=== PATIENT | male | born 1935 | race Caucasian/White ===

== ENCOUNTER → 2017-03-25 | Outpatient (CLI) | payer MEDICARE, SELFPAY ==
[~2017-03-25] MED LIST: LISINOPRIL20 MG PO; MIRALAX17 GM PO; NORVASC 5 MG TAB5 MG PO; OMEPRAZOLE20 MG PO; PHENERGAN 25 MG25 M1 PO; PROTONIX40 MG PO; SIMVASTATIN10 MG PO
== END ==
LOC: KOH-I 08:00
DX: R10.0 Acute abdomen (principal); K80.20 Calculus of gallbladder without cholecystitis without obstruction
CPT/HCPCS: 76705

== ENCOUNTER 2017-04-21 09:07 | Inpatient (IN) | payer MEDICARE, OTHER ==
[~2017-04-21] VITALS: Ht 189.2 cm; Wt 77.3 kg
[2017-04-21 09:57] LABS: HEMOGLOBIN 12.2 gm/dl (14.0-17.5); RED BLOOD COUNT 3.84 M/UL (4.20-5.50); WHITE BLOOD COUNT 10.7 K/UL (4.5-11.0)
[2017-04-21 10:49] LABS: BUN/CREATININE RATIO 34 (0-10)
[2017-04-21] MEDS ORDERED: LISINOPRIL20 MG PO (17:25)
[2017-04-21] MEDS ORDERED: NORVASC 5 MG TAB5 MG PO (17:25)
[2017-04-21] MEDS ORDERED: OMEPRAZOLE20 MG PO (17:26)
[2017-04-21] MEDS ORDERED: SIMVASTATIN10 MG PO (17:27)
[2017-04-21] MEDS ORDERED: MIRALAX17 GM PO (17:28)
[2017-04-21] MEDS ORDERED: PHENERGAN 25 MG25 M1 PO (17:28)
[2017-04-21 19:55] LABS: HEMOGLOBIN 10.3 gm/dl (14.0-17.5)
[2017-04-22 04:08] LABS: HEMOGLOBIN 9.4 gm/dl (14.0-17.5)
[2017-04-22 04:09] LABS: RED BLOOD COUNT 2.98 M/UL (4.20-5.50); WHITE BLOOD COUNT 6.4 K/UL (4.5-11.0)
[2017-04-22 04:23] LABS: BUN/CREATININE RATIO 35 (0-10)
[2017-04-22 11:17] LABS: HEMOGLOBIN 9.6 gm/dl (14.0-17.5)
[2017-04-23 05:33] LABS: HEMOGLOBIN 8.5 gm/dl (14.0-17.5)
[2017-04-23 05:38] LABS: RED BLOOD COUNT 2.65 M/UL (4.20-5.50); WHITE BLOOD COUNT 8.2 K/UL (4.5-11.0)
[2017-04-23 05:56] LABS: BUN/CREATININE RATIO 24 (0-10)
[2017-04-24 04:24] LABS: HEMOGLOBIN 8.1 gm/dl (14.0-17.5); RED BLOOD COUNT 2.59 M/UL (4.20-5.50); WHITE BLOOD COUNT 6.4 K/UL (4.5-11.0)
[2017-04-24 04:45] LABS: BUN/CREATININE RATIO 13 (0-10)
[2017-04-25 05:08] LABS: HEMOGLOBIN 7.4 gm/dl (14.0-17.5); RED BLOOD COUNT 2.34 M/UL (4.20-5.50); WHITE BLOOD COUNT 5.3 K/UL (4.5-11.0)
[2017-04-26 04:48] LABS: HEMOGLOBIN 8.4 gm/dl (14.0-17.5)
[2017-04-26 04:49] LABS: RED BLOOD COUNT 2.7 M/UL (4.20-5.50)
[2017-04-26 05:22] LABS: BUN/CREATININE RATIO 9 (0-10)
[2017-04-26 12:51] LABS: HEMOGLOBIN 8.8 gm/dl (14.0-17.5)
[2017-04-27 04:04] LABS: HEMOGLOBIN 8.5 gm/dl (14.0-17.5); RED BLOOD COUNT 2.73 M/UL (4.20-5.50); WHITE BLOOD COUNT 5.4 K/UL (4.5-11.0)
[2017-04-27] MEDS ORDERED: PROTONIX40 MG PO (19:15)
== END 2017-04-27 19:37 | disposition home or self-care (01) | DRG 378 ==
LOC: ER1 09:07 → MED SURG 4 12:12 → ZEROF 12:12 → MED SURG 4 16:53
PROVIDERS: Family Medicine; Internal Medicine; Internal Medicine Gastroenterology; Internal Medicine Infectious Disease; ADMIT Internal Medicine
PROC: 0DJ08ZZ Inspection of Upper Intestinal Tract, Via Natural or Artificial Opening Endoscopic (ICD-10-PCS; principal; 2017-04-23 15:15)
PROC: 0DJD8ZZ Inspection of Lower Intestinal Tract, Via Natural or Artificial Opening Endoscopic (ICD-10-PCS; 2017-04-23 15:15)
PROC: 30233N1 Transfusion of Nonautologous Red Blood Cells into Peripheral Vein, Percutaneous Approach (ICD-10-PCS; 2017-04-25)
DX: K57.31 Diverticulosis of large intestine without perforation or abscess with bleeding (principal); D62 Acute posthemorrhagic anemia; K22.10 Ulcer of esophagus without bleeding; I48.91 Unspecified atrial fibrillation; K44.9 Diaphragmatic hernia without obstruction or gangrene; K64.8 Other hemorrhoids; K62.4 Stenosis of anus and rectum; K31.84 Gastroparesis; N40.0 Benign prostatic hyperplasia without lower urinary tract symptoms; K21.9 Gastro-esophageal reflux disease without esophagitis; E78.4 Other hyperlipidemia; E78.5 Hyperlipidemia, unspecified; I10 Essential (primary) hypertension; Z98.890 Other specified postprocedural states; Z79.1 Long term (current) use of non-steroidal anti-inflammatories (NSAID); Z79.899 Other long term (current) drug therapy; Z86.73 Personal history of transient ischemic attack (TIA), and cerebral infarction without residual deficits; Z87.891 Personal history of nicotine dependence
CPT/HCPCS: 36415; 36430; 80048; 80053; 82272; 83735; 85014; 85018; 85025; 85027; 85610; 85730; 86850; 86900; 86901; 86920; 93005; 99283; J2550; J7030; J7040; J7050; P9016

== ENCOUNTER 2021-02-12 10:39 | Inpatient (IN) | payer MEDICARE ==
[~2021-02-12] VITALS: Ht 188 cm; Wt 65.8 kg
[~2021-02-12 10:39] MED LIST changes: +AMLODIPINE BESY10 MG PO; +AMLODIPINE BESYL5 MG PO; +ASPIRIN CHEWABL81 MG PO; +CATAPRES 0.1MG0.1 MG PO; +CIPRO500 MG PO; +CLARITIN10 MG PO; +ECOTRIN81 MG PO; +ELIQUIS 5 MG TAB5 MG PO; +ELIQUIS5 MG PO; +ENSURE ACTIVE296 ML PO; +FERROUS SULFAT325 M2 PO; +FLEXERIL 10 MG10 MG PO; +HYDROCHLOROTHIA25 MG PO; +HYDROCODON-ACE1 EAC2 PO; +LEVAQUIN500 MG PO; +LOPRESSOR 25 MG25 MG PO; +LOPRESSOR 50 MG50 MG PO; +LOPRESSOR50 MG PO; +MUCINEX DM ER1 EACH PO; -NORVASC 5 MG TAB5 MG PO; +NORVASC10 MG PO; +POLYETHYLENE GL17 GM PO; +PROSCAR 5 MG TAB5 MG PO; +TYLENOL 325MG325 MG PO; +VITAMIN C 500500 MG PO; +ZESTRIL20 MG PO
[2021-02-12 11:44] LABS: HEMOGLOBIN 9.6 gm/dl (14.0-17.5); RED BLOOD COUNT 4.44 M/UL (4.20-5.50); WHITE BLOOD COUNT 9.4 K/UL (4.5-11.0)
[2021-02-12 12:01] LABS: BUN/CREATININE RATIO 23 (0-10)
[2021-02-12] MEDS ORDERED: KLOR-CON M1010 MEQ PO (16:32)
[2021-02-12] MEDS ORDERED: LASIX20 MG PO (16:32)
[2021-02-12] MEDS ORDERED: MIRALAX17 GM PO (16:33)
[2021-02-12] MEDS ORDERED: ASPIRIN EC81 MG PO (16:34)
[2021-02-12] MEDS ORDERED: LOPRESSOR 50 MG50 MG PO (17:54)
[2021-02-13 03:41] LABS: HEMOGLOBIN 9.9 gm/dl (14.0-17.5); RED BLOOD COUNT 4.54 M/UL (4.20-5.50); WHITE BLOOD COUNT 11.6 K/UL (4.5-11.0)
[2021-02-13 04:06] LABS: BUN/CREATININE RATIO 24 (0-10)
[2021-02-13] MEDS ORDERED: HYDROCODON-ACE1 EAC4 PO (10:31)
== END 2021-02-13 13:00 | disposition home or self-care (01) | DRG 186 ==
LOC: ER1 10:39 → CDU 16:14 → PROG CARE 20:52
PROVIDERS: Student in an Organized Health Care Education/Training Program; ADMIT Internal Medicine Infectious Disease
PROC: 0W9930Z Drainage of Right Pleural Cavity with Drainage Device, Percutaneous Approach (ICD-10-PCS; principal; 2021-02-12)
DX: J90 Pleural effusion, not elsewhere classified (principal); J96.01 Acute respiratory failure with hypoxia; J93.9 Pneumothorax, unspecified; E87.6 Hypokalemia; I48.91 Unspecified atrial fibrillation; I49.5 Sick sinus syndrome; I10 Essential (primary) hypertension; E78.5 Hyperlipidemia, unspecified; D64.9 Anemia, unspecified; K21.9 Gastro-esophageal reflux disease without esophagitis; N40.0 Benign prostatic hyperplasia without lower urinary tract symptoms; Z96.643 Presence of artificial hip joint, bilateral; I71.4 Abdominal aortic aneurysm, without rupture; Z66 Do not resuscitate; Z86.73 Personal history of transient ischemic attack (TIA), and cerebral infarction without residual deficits; Z86.711 Personal history of pulmonary embolism; Z95.0 Presence of cardiac pacemaker; Z90.49 Acquired absence of other specified parts of digestive tract; Z82.3 Family history of stroke; Z98.49 Cataract extraction status, unspecified eye
CPT/HCPCS: ECHO; 36415; 36600; 71045; 80053; 82550; 82553; 82803; 83735; 83874; 83880; 84484; 85025; 85027; 85610; 85730; 87070; 87205; 93005; 93306; 99285; P9047; Q9967

== ENCOUNTER → 2021-02-15 | Outpatient (CLI) | payer MEDICARE ==
[~2021-02-15] MED LIST changes: +ASPIRIN 325MG325 MG PO; +ASPIRIN EC81 MG PO; +DIGOXIN125 MCG PO; +HYDROCODON-ACE1 EAC4 PO; +KLOR-CON M1010 MEQ PO; +LANOXIN125 MCG PO; +LASIX20 MG PO; +MEGACE 400400 MG/10 PO
== END ==
LOC: EXRD 10:04
DX: R06.02 Shortness of breath (principal); J94.8 Other specified pleural conditions
CPT/HCPCS: 71046

== ENCOUNTER 2021-02-24 12:24 | Inpatient (IN) | payer MEDICARE ==
[~2021-02-24] VITALS: Ht 188 cm; Wt 77.1 kg
[~2021-02-24 12:24] MED LIST changes: -ASPIRIN 325MG325 MG PO; -DIGOXIN125 MCG PO; -LANOXIN125 MCG PO; -MEGACE 400400 MG/10 PO
[2021-02-24 12:51] LABS: HEMOGLOBIN 9.4 gm/dl (14.0-17.5); RED BLOOD COUNT 4.24 M/UL (4.20-5.50); WHITE BLOOD COUNT 13.9 K/UL (4.5-11.0)
[2021-02-24 13:15] LABS: BUN/CREATININE RATIO 24 (0-10)
[2021-02-25 05:42] LABS: HEMOGLOBIN 9.7 gm/dl (14.0-17.5); RED BLOOD COUNT 4.4 M/UL (4.20-5.50); WHITE BLOOD COUNT 11.4 K/UL (4.5-11.0)
[2021-02-25 05:57] LABS: BUN/CREATININE RATIO 26 (0-10)
--- NOTE | 2021-02-25 19:08 | NUR ---
PTS HEART RATE WENT UP TO 140 BPM. I WENT TO CHECK IN ON THE PATIENT AND FOUND HIM UP AND IN THE BATHROOM. PATIENT WAS SHORT OF BREATH AND HAD DISCONNECTED HIS CHEST TUBE FROM THE SUCTION CONTAINER. I CLAMPED THE TUBE COMING FROM THE CHEST TO PREVENT THE LUNG FROM COLLAPSING. WE THEN WALKED THE PATIENT BACK TO THE BED WHERE WE CLEANED AND ATTACHED A NEW DRAINAGE SYSTEM. THE PATIENTS O2 STAT WAS AT 94% AND HAD SOME LABORED BREATHING. ONCE WE CONNECTED HIM BACK TO THE SUCTIONS I CONFIRMED THE PATIENT HAD DRAINAGE BEFORE LEAVING. I THEN CALLED THE AND GOT HIS VOICE MAIL. I LEFT A VOICE MAIL TELLING HIM TO CALL BACK. THEN I CALLED DR. DIAZ AND SHE ORDERED A CHEST XRAY TO CONFIRM PLACEMENT OF THE CHEST TUBE. THE BED ALARM WAS TURNED ON AND THE PATIENT HAS BEEN IN THE BED.
[2021-02-26 03:56] LABS: HEMOGLOBIN 9.6 gm/dl (14.0-17.5); RED BLOOD COUNT 4.3 M/UL (4.20-5.50)
[2021-02-26 04:21] LABS: BUN/CREATININE RATIO 35 (0-10)
[2021-02-27 02:47] LABS: HEMOGLOBIN 9.3 gm/dl (14.0-17.5); RED BLOOD COUNT 4.28 M/UL (4.20-5.50); WHITE BLOOD COUNT 13.5 K/UL (4.5-11.0)
[2021-02-27 03:06] LABS: BUN/CREATININE RATIO 41 (0-10)
[2021-02-28 02:58] LABS: HEMOGLOBIN 9.1 gm/dl (14.0-17.5); RED BLOOD COUNT 4.11 M/UL (4.20-5.50); WHITE BLOOD COUNT 12.2 K/UL (4.5-11.0)
[2021-02-28 03:19] LABS: BUN/CREATININE RATIO 52 (0-10)
[2021-03-01 03:42] LABS: BUN/CREATININE RATIO 52 (0-10)
[2021-03-02 03:05] LABS: BUN/CREATININE RATIO 60 (0-10)
[2021-03-02 11:32] LABS: HEMOGLOBIN 8.5 gm/dl (14.0-17.5); RED BLOOD COUNT 3.81 M/UL (4.20-5.50); WHITE BLOOD COUNT 10.6 K/UL (4.5-11.0)
[2021-03-03 02:52] LABS: BUN/CREATININE RATIO 51 (0-10)
[2021-03-04 03:26] LABS: HEMOGLOBIN 9.1 gm/dl (14.0-17.5); RED BLOOD COUNT 4.1 M/UL (4.20-5.50)
[2021-03-04 03:50] LABS: BUN/CREATININE RATIO 42 (0-10)
[2021-03-05 03:38] LABS: RED BLOOD COUNT 4.02 M/UL (4.20-5.50)
[2021-03-05 03:48] LABS: BUN/CREATININE RATIO 44 (0-10)
[2021-03-07 02:40] LABS: RED BLOOD COUNT 4.01 M/UL (4.20-5.50); WHITE BLOOD COUNT 10.8 K/UL (4.5-11.0)
[2021-03-07 03:00] LABS: BUN/CREATININE RATIO 40 (0-10)
[2021-03-08 03:01] LABS: HEMOGLOBIN 9.4 gm/dl (14.0-17.5); RED BLOOD COUNT 4.25 M/UL (4.20-5.50); WHITE BLOOD COUNT 10.6 K/UL (4.5-11.0)
[2021-03-08 03:15] LABS: BUN/CREATININE RATIO 48 (0-10)
[2021-03-08 16:53] LABS: BUN/CREATININE RATIO 46 (0-10)
[2021-03-09 07:12] LABS: RED BLOOD COUNT 4.45 M/UL (4.20-5.50); WHITE BLOOD COUNT 10.3 K/UL (4.5-11.0)
[2021-03-09 07:45] LABS: BUN/CREATININE RATIO 43 (0-10)
[2021-03-09] MEDS ORDERED: DIGOXIN125 MCG PO (11:26)
[2021-03-09] MEDS ORDERED: ASPIRIN 325MG325 MG PO (11:26)
[2021-03-09] MEDS ORDERED: MEGACE 400400 MG/10 PO (11:26)
[2021-03-09] MEDS ORDERED: LOPRESSOR 50 MG50 MG PO (11:26)
--- NOTE | 2021-03-09 11:57 | NUR ---
1000 ML DRAINED FROM PLEUR X CATH BY [employer]
[2021-03-09] MEDS ORDERED: ASPIRIN CHEWABL81 MG PO (12:29)
--- NOTE | 2021-03-09 12:41 | NUR ---
PT O2 SATURATION WAS 99-100% WHILE UP USING BED SIDE COMMODE AND AMBULATING FROM BED TO BED SIDE COMMODE.
--- NOTE | 2021-03-09 14:28 | NUR ---
PT'S DAUGHTER GARFIELD VERBALIZES UNDERSTANDING OF HOW TO DRAIN RIGHT LUNG VIA PLUER X CATH. DEMONSTRATED AND LET DAUGHTER WATCH VIDEO ON PROCEDURE.
--- NOTE | 2021-03-09 15:33 | NUR ---
ATTEMPTED TO CALL REPORT TO [facility] AND THEY STATE THE NURSE TAKING THIS PT IS BUSY AND WILL CALL BACK AT A LATER TIME
== END 2021-03-09 14:57 | disposition home health service (06) | DRG 199 ==
LOC: ER1 12:24 → PROG CARE 13:49 → CDU 13:49 → PROG CARE 02-25 11:21
PROVIDERS: Family Medicine; Internal Medicine; Physician Assistant; Physician Assistant Medical; ADMIT Internal Medicine
PROC: XW13325 Transfusion of Convalescent Plasma (Nonautologous) into Peripheral Vein, Percutaneous Approach, New Technology Group 5 (ICD-10-PCS; principal; 2021-02-24)
PROC: 8E0ZXY6 Isolation (ICD-10-PCS; 2021-02-24)
PROC: XW033E5 Introduction of Remdesivir Anti-infective into Peripheral Vein, Percutaneous Approach, New Technology Group 5 (ICD-10-PCS; 2021-02-24)
PROC: 0W9930Z Drainage of Right Pleural Cavity with Drainage Device, Percutaneous Approach (ICD-10-PCS; 2021-02-24)
PROC: 0WP9X0Z Removal of Drainage Device from Right Pleural Cavity, External Approach (ICD-10-PCS; 2021-03-08)
DX: J93.0 Spontaneous tension pneumothorax (principal); U07.1 COVID-19; J96.01 Acute respiratory failure with hypoxia; I50.23 Acute on chronic systolic (congestive) heart failure; J94.8 Other specified pleural conditions; J90 Pleural effusion, not elsewhere classified; I42.9 Cardiomyopathy, unspecified; I48.20 Chronic atrial fibrillation, unspecified; E87.2 Acidosis; E46 Unspecified protein-calorie malnutrition; N17.9 Acute kidney failure, unspecified; E44.1 Mild protein-calorie malnutrition; I49.5 Sick sinus syndrome; E78.5 Hyperlipidemia, unspecified; I11.0 Hypertensive heart disease with heart failure; N40.0 Benign prostatic hyperplasia without lower urinary tract symptoms; Z96.643 Presence of artificial hip joint, bilateral; D53.9 Nutritional anemia, unspecified; K21.9 Gastro-esophageal reflux disease without esophagitis; R00.0 Tachycardia, unspecified; K31.84 Gastroparesis; I95.2 Hypotension due to drugs; I48.0 Paroxysmal atrial fibrillation; Z51.5 Encounter for palliative care; Z86.711 Personal history of pulmonary embolism; Z86.73 Personal history of transient ischemic attack (TIA), and cerebral infarction without residual deficits; Z90.49 Acquired absence of other specified parts of digestive tract; Z98.49 Cataract extraction status, unspecified eye; Z79.01 Long term (current) use of anticoagulants; Z82.3 Family history of stroke; Z95.0 Presence of cardiac pacemaker; Z87.891 Personal history of nicotine dependence; Z68.21 Body mass index [BMI] 21.0-21.9, adult
CPT/HCPCS: 32551; 36415; 36600; 51702; 70450; 71045; 71250; 71275; 80048; 80053; 82550; 82553; 82803; 83605; 83735; 83874; 83880; 84100; 84484; 85025; 85027; 85379; 85610; 87040; 87070; 87205; 92526; 92610; 93005; 94640; 94760; 96365; 96368; 96375; 97110; 97110-GP-CQ; 97162; 97166; 97530; 99285; C1729; J0690; J0696; J1100; J1160; J1650; J1940; J2001; J2185; J2543; J2704; J3370; J7030; J7040; J7120; Q9967; U0002

== ENCOUNTER 2021-03-10 14:17 | Emergency (ER) | payer MEDICARE ==
[~2021-03-10 14:17] MED LIST changes: +ASPIRIN 325MG325 MG PO; +DIGOXIN125 MCG PO; +MEGACE 400400 MG/10 PO
[2021-03-10 15:17] LABS: HEMOGLOBIN 10.2 gm/dl (14.0-17.5); RED BLOOD COUNT 4.52 M/UL (4.20-5.50); WHITE BLOOD COUNT 12.3 K/UL (4.5-11.0)
[2021-03-10 15:41] LABS: BUN/CREATININE RATIO 40 (0-10)
== END 2021-03-10 20:24 | disposition home or self-care (01) ==
LOC: ER1 14:17
PROVIDERS: Preventive Medicine Occupational Medicine
DX: G89.18 Other acute postprocedural pain (principal); R10.9 Unspecified abdominal pain
CPT/HCPCS: 71045; 80053; 82550; 82553; 83874; 83880; 84484; 85025; 85652; 86140; 93005; 99284; J2060; J7030

== ENCOUNTER 2021-03-11 09:54 | Emergency (ER) | payer MEDICARE ==
[~2021-03-11] VITALS: Ht 188 cm; Wt 77.1 kg
[2021-03-11 10:44] LABS: HEMOGLOBIN 10.3 gm/dl (14.0-17.5); RED BLOOD COUNT 4.44 M/UL (4.20-5.50); WHITE BLOOD COUNT 13.9 K/UL (4.5-11.0)
[2021-03-12 01:59] LABS: HEMOGLOBIN 9.6 gm/dl (14.0-17.5); RED BLOOD COUNT 4.16 M/UL (4.20-5.50); WHITE BLOOD COUNT 17.1 K/UL (4.5-11.0)
[2021-03-12] MEDS ORDERED: LANOXIN125 MCG PO (07:33)
[2021-03-12] MEDS ORDERED: MEGACE 400400 MG/10 PO (07:34)
== END 2021-03-12 17:37 | disposition home or self-care (01) ==
LOC: ER1 09:54 → CDU 17:17 → ER1 17:17
PROVIDERS: Emergency Medicine; Physician Assistant
DX: J18.9 Pneumonia, unspecified organism (principal); J94.2 Hemothorax; Z20.822 Contact with and (suspected) exposure to COVID-19
CPT/HCPCS: 0240U; 32551; 36556; 36600; 70450; 71045; 80053; 81001; 82803; 83605; 83690; 85025; 85379; 85610; 85730; 87040; 87086; 93005; 94660; 94760; 96365; 96366; 96368; 96372; 96375; 99285; C9113; J1630; J1650; J2060; J2270; J2405; J2543; J3370; J3486; J7030; J7070; Q9967